=== PATIENT | female | born 1970 | race Caucasian/White ===

== ENCOUNTER → 2018-02-13 | Outpatient (CLI) | payer BC ==
[~2018-02-13] MED LIST: BUSP5 PO; CYCL10 PO; HYDACE5 PO; MEDR150I IM; Mirena1 EACH; Monodox100 MG PO; NAPR500 PO; NORPLANT; Prozac20 MG PO; TRAM50 PO
[2018-02-17 15:07] LABS: HPV 16 Negative (Negative); HPV 18 Negative (Negative); HPV OTHER HR TYPES Negative (Negative)
== END | disposition home or self-care (01) ==
LOC: LAB 17:58 → LAB SHORT 17:58
PROVIDERS: Nurse Practitioner Women's Health
DX: Z12.4 Encounter for screening for malignant neoplasm of cervix (principal)
CPT/HCPCS: 87624; G0123

== ENCOUNTER → 2020-11-01 | Outpatient (CLI) | payer BC | END | disposition home or self-care (01) | LOC: LAB SHORT 10:37 | DX: D36.10 Benign neoplasm of peripheral nerves and autonomic nervous system, unspecified (principal) | CPT/HCPCS: 88305 ==

== ENCOUNTER 2024-10-01 08:33 | Day surgery (SDC) | payer BC ==
[~2024-10-01] VITALS: Ht 165.1 cm; Wt 110.9 kg
[2024-10-01] MEDS ORDERED: CeFAZolin Sodium 2,000 MG VIAL ONE (08:49)
[2024-10-01] MEDS ORDERED: ASPI500 PO (09:01)
[2024-10-01] MEDS ORDERED: MOUNJARO2.5 MG/0.5 SC (09:01)
[2024-10-01] MEDS ORDERED: FentaNYL Citrate 50 MCG/ML 2 ML Injection ONE (09:03)
[2024-10-01] MEDS ORDERED: Dexamethasone Sod Phos 10 MG/ML 1ML VIAL ONE (09:07)
[2024-10-01] MEDS ORDERED: Ondansetron HCl 2 MG / ML 2ML Vial ONE (09:07)
--- NOTE | 2024-10-01 10:10 | NUR ---
10/01/24 1010 BREANNA PUCKETT PT UP TO RESTROOM TO VOID PRIOR TO SURGERY
[2024-10-01] MEDS ORDERED: Midazolam HCl 1MG / ML 2ML Vial ONE (10:20)
--- NOTE | 2024-10-01 11:11 | NUR ---
10/01/24 Angelina Ferguson FLUID DEFICIT OF LESS THAN 500ML, AMADO NOTIFIED
--- NOTE | 2024-10-01 11:13 | NUR ---
10/01/24 Starr3 LEDA LIVINGSTON PT WAS PLACED ON 4L O2 VIA NASAL CANNULA- OVER ORAL AIRWAY MOUTH BREATHING. SAT WAS 90% ON RA. CURRENTLY 94% PT SLEEPING, HEAD TILT.
[2024-10-01 11:39] VITALS: BP 155/93
--- NOTE | 2024-10-01 11:49 | NUR ---
10/01/24 1149 LEDA LIVINGSTON PT STATES THAT SHE HAS CHRONIC KNEE PAIN. 10/21. PREOP WAS 03/23 RIGHT KNEE. POSSIBLE POSITIONING. ICE PACK BROUGHT IN AND PLACED UNDER RIGHT KNEE ALONG WITH PILLOW. PT HAS WATER AND COFFEE. DENTURES OFFERED BUT PT STATES THAT THEY ARE TOO BIG AND WILL ONLY FALL OUT SHE HAS LOST 80 POUNDS AND NEEDS TO HAVE THEM FIXED/ADJUSTED
== END 2024-10-01 12:27 | disposition home or self-care (01) ==
LOC: ORSCSDS 08:33
PROVIDERS: Obstetrics & Gynecology
PROC: 0UPD8HZ Removal of Contraceptive Device from Uterus and Cervix, Via Natural or Artificial Opening Endoscopic (ICD-10-PCS; principal; 2024-10-01 10:00)
DX: T83.32XD Displacement of intrauterine contraceptive device, subsequent encounter (principal); K21.9 Gastro-esophageal reflux disease without esophagitis; F17.290 Nicotine dependence, other tobacco product, uncomplicated; E66.01 Morbid (severe) obesity due to excess calories; Z68.41 Body mass index [BMI] 40.0-44.9, adult; Z79.899 Other long term (current) drug therapy; Z79.85 Long-term (current) use of injectable non-insulin antidiabetic drugs; Z79.82 Long term (current) use of aspirin
CPT/HCPCS: J0690; J1100; J2250; J2405; J2704; J3010; J7120